=== PATIENT | female | born 1985 | race Caucasian/White ===

== ENCOUNTER → 2017-04-03 | Outpatient (CLI) | payer OTHER ==
--- NOTE | 2017-04-04 11:22 | RADIOLOGY REPORT (SQ) ---
EXAM DESCRIPTION: PET CT SKULL/THIGH COMPLETED DATE/TIME: 04/03/2017 10:20 pm REASON FOR STUDY: COLON CANCER Z85.528 PERSONAL HISTORY OF OTHER MALIGNANT NEOPLASM OF KIDN COMPARISON: 05/14/2016. RADIONUCLIDE AND DOSE: 12.0 mCi F18 FDG The route of agent administration: Intravenous FASTING BLOOD SUGAR: 85 mg/dl CONTRAST TYPE AND DOSE: No CT contrast given. TECHNIQUE: Blood glucose level was verified. Above dose of FDG was injected intravenously. 2-D seg mented attenuation correction images were obtained from the base of the skull to the midthighs. Nonc ontrast CT images were obtained for attenuation correction and fusion with emission images. CT image s were performed without oral or intravenous contrast and are not sensitive for parenchymal lesions. A series of overlapping emission PET images were obtained. Images reviewed and manipulated at [facility] work station by the radiologist. Images stored on PACS. LIMITATIONS: None. FINDINGS: HEAD AND NECK: No areas of abnormal metabolic activity in the soft tissues of the head and neck. CHEST: No areas of abnormal metabolic activity in the chest. ABDOMEN AND PELVIS: Stable surgical changes of partial colectomy and right kidney lower pole partial nephrectomy. No areas of abnormal metabolic activity in the abdomen or pelvis. Expected physiologic activity is present in the genitourinary system and bowel. PROXIMAL LOWER EXTREMITIES: No areas of abnormal metabolic activity in the soft tissues of the lower extremities. BONES: No abnormal metabolic activity in the visualized skeleton. ADDITIONAL CT FINDINGS: No additional significant findings on the noncontrast CT images. OTHER: No other significant findings. IMPRESSION: ESSENTIALLY UNREMARKABLE PET SCAN. STABLE SURGICAL CHANGES OF PREVIOUS PARTIAL COLECTOM Y AND RIGHT KIDNEY LOWER POLE PARTIAL NEPHRECTOMY. NO AREAS OF ABNORMAL METABOLIC ACTIVITY. NO EVID ENCE OF RESIDUAL OR RECURRENT DISEASE OR METASTASIS. TECHNICAL DOCUMENTATION: JOB ID: [id number] [employer]- All Rights Reserved
== END ==
LOC: RAD 20:08
PROVIDERS: ATTEND Internal Medicine Medical Oncology
DX: C18.9 Malignant neoplasm of colon, unspecified (principal); Z85.528 Personal history of other malignant neoplasm of kidney
CPT/HCPCS: 78815; A9552

== ENCOUNTER → 2017-04-19 | Outpatient (CLI) | payer OTHER ==
--- NOTE | 2017-04-19 17:57 | WOMENS IMAGING REPORT ---
EXAM DESCRIPTION: BILAT SCREENING MAMMO W/CAD COMPLETED DATE/TIME: 04/19/2017 8:55 am REASON FOR STUDY: ROUTINE SCREENING; Z12.31 Z12.31 ENCNTR SCREEN MAMMOGRAM FOR MALIGNANT NEOPLASM O F TARUN COMPARISON: None. TECHNIQUE: Standard craniocaudal and mediolateral oblique views of each breast recorded using digita l acquisition. LIMITATIONS: None. FINDINGS: No masses, calcifications or architectural distortion. No areas of suspicion. Read with the assistance of CAD. .[facility] - R2 Cenova Version 1.3 .[facility] - R2 Cenova Version 1.3 .[facility] - R2 Cenova Version 2.4 .[facility] - R2 Cenova Version 2.4 .[facility] - R2 [employer] Version 9.2 IMPRESSION: NORMAL MAMMOGRAM. BIRADS 1. BREAST DENSITY: b. There are scattered areas of fibroglandular density. BIRAD: 1 NEGATIVE RECOMMENDATION: ROUTINE SCREENING Please continue yearly screening in March 2018, consider screening tomosynthesis. COMMENT: The patient has been notified of the results by letter per [place] requirements. Additional no tification policies are in place for contacting patient with suspicious or incomplete findings. Quality ID #[id number]: The [employer] recommends an annual screening mammogram for women aged 40 years or over. This facility utilizes a reminder system to ensure that all patients receive reminder letters, and/or direct phone calls for appointments. This includes reminders for routine scr eening mammograms, diagnostic mammograms, or other Breast Imaging Interventions when appropriate. Th is patient will be placed in the appropriate reminder system. The [employer] (ACR) has developed recommendations for screening MRI of the breast s in certain patient populations, to be used in conjunction with mammography. Breast MRI surveillanc e may be appropriate for women with more than 20% lifetime risk of developing breast cancer as deter mined by genetic testing, significant family history of the disease, or history of mantle radiation f or Hodgkins Disease. ACR Practice Guidelines 2008. TECHNICAL DOCUMENTATION: FINDING NUMBER: (1) ASSESSMENT: (1) JOB ID: [id number] [employer]- All Rights Reserved
== END ==
LOC: WI 09:12
PROVIDERS: ATTEND Internal Medicine Medical Oncology
DX: Z12.31 Encounter for screening mammogram for malignant neoplasm of breast (principal)
CPT/HCPCS: 77067; G0202

== ENCOUNTER 2017-06-03 08:35 | Day surgery (SDC) | payer OTHER ==
--- NOTE | 2017-06-01 12:24 | HISTORY AND PHYSICAL E ---
History and Physical NAME: KEILA CROCKER : 1985 AGE: 31Y ADMITTED: 06/03/2017 ROOM: HISTORY OF PRESENT ILLNESS: The patient was seen regarding blood in the stool, rectal bleeding. She is for colon exam. Patient did have colonoscopy done 2015 showing sigmoid polyp. Patient for colonoscopy. Patient was seen 05/2016. She does have a history of kidney cancer, colon cancer, and underwent colonoscopy shows a sessile polyp, resected. The patient did have history of colon cancer. Patient did have followup colonoscopy, benign looking polyp in the rectum, 0.5 cm polyp resected. MEDICATIONS: Synthroid. PAST MEDICAL HISTORY: History of sigmoid resection. 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 Cardiac: Negative. Endocrine: Hypothyroid. SOCIAL HISTORY: She is . Does not smoke. Does not drink. FAMILY HISTORY: Father is alive. Mom had CVA, she was 63 years old. REVIEW OF SYSTEMS: GI: Rectal bleeding. Oncology/Hematology: Partial right kidney resection. Neurology: Negative. PHYSICAL EXAMINATION: VITALS: Blood pressure 130/80, pulse 80, respirations 18, temperature is 98. HEAD, EYES, EARS, NOSE, THROAT: Normal. NECK: Supple. CARDIOVASCULAR: Normal. LUNGS: Clear. ABDOMEN: Soft. NEUROLOGIC: Negative. CONCLUSION: Colon screening. Blood in the stool. PLAN: Colonoscopy. She did have benign polyp 06/16/16, hyperplastic polyp. DICTATING PHYSICIAN: COLBY TAPIA M.D. [id number] PHY#: [id number] ID: [id number] JOB#: [id number] ACCT: [id number] cc: >
[~2017-06-03 08:35] MED LIST: EPINEPHRINE INJ 1 MG/10 ML DISP.SYRIN ONE; FLUMAZENIL INJ 0.5 MG/5 ML VIAL ONE; GLUCAGON,HUMAN RECOMB 1 MG INJ ONE; GLYCOPYRROLATE INJ 0.4 MG/2 ML VIAL ONE; NALOXONE HCL INJ/PF 0.4 MG/1 ML SDV ONE; ONDANSETRON HCL INJ/PF 4 MG/2 ML SDV ONE
[2017-06-03] MEDS: MIDAZOLAM 2 MG/2 ML INJ ONE ×2 (09:06→09:10)
[2017-06-03] MEDS: FENTANYL CITRATE INJ/PF 100 MCG/2 ML AMPUL ONE ×3 (09:08→09:14)
[2017-06-03 10:28] VITALS: BP 102/63
--- NOTE | 2017-06-03 11:52 | DISCHARGE SUMMARY E ---
Discharge Summary NAME: KEILA CROCKER : 1985 AGE: 31Y ADMITTED: 06/03/2017 DISCHARGED: 06/03/2017 HISTORY: The patient is 31, presents with a history of polyps, history of kidney cancer. Underwent colonoscopy today, shows no evidence of polyps, mild external hemorrhoids, and question anal fissure. DISCHARGE PLAN: Xylocaine jelly 2% as needed, sitz baths. Consider followup colonoscopy 2 years. DICTATING PHYSICIAN: COLBY TAPIA M.D. [id number] PHY#: [id number] ID: [id number] JOB#: [id number] ACCT: [id number] cc:[facility] COLBY TAPIA M.D. >
--- NOTE | 2017-06-03 11:53 | OPERATIVE REPORT E ---
Operative Report NAME: KEILA CROCKER : 1985 AGE: 31Y DATE OF SURGERY: 06/03/2017 ROOM: PREOPERATIVE DIAGNOSIS: Rectal bleeding, history of polyps. POSTOPERATIVE DIAGNOSIS: External hemorrhoid, small question anal fissure. OPERATION: Colonoscopy. SURGEON: COLBY TAPIA M.D. ANESTHESIA: Versed 3, fentanyl 200. TISSUE REMOVED OR ALTERED: None. PROCEDURE: Rectal exam was painful, but I did not see any definite fissure. There are mild external hemorrhoids. Rectal matter was normal. Sigmoid, descending colon normal. Transverse colon normal. Ascending, cecum, ileocecal valve normal. Scope withdrawn from cecum, ascending, transverse, descending, sigmoid, all the way to the rectum. CONCLUSION: The rectal bleeding from hemorrhoids, question anal fissure. Rectal bleeding, external hemorrhoids, anal fissure. Patient tolerated the procedure, was discharged to home in stable condition. PLAN: Soft diet, sitz baths, and Xylocaine jelly. Consider followup colonoscopy after 2 years. She did have a polyp resected on previous colonoscopy December 2015. Today, there were no polyps. DICTATING PHYSICIAN: COLBY TAPIA M.D. [id number] PHY#: [id number] ID: [id number] JOB#: [id number] ACCT: [id number] cc:[facility] COLBY SALAZAR M.D. >
== END 2017-06-03 10:40 | disposition home or self-care (01) ==
LOC: END 08:35
PROVIDERS: ATTEND Specialist
PROC: 0DJD8ZZ Inspection of Lower Intestinal Tract, Via Natural or Artificial Opening Endoscopic (ICD-10-PCS; principal; 2017-06-03 09:00)
DX: K62.5 Hemorrhage of anus and rectum (principal); K64.4 Residual hemorrhoidal skin tags; E03.9 Hypothyroidism, unspecified; Z90.5 Acquired absence of kidney; Z90.49 Acquired absence of other specified parts of digestive tract; Z85.528 Personal history of other malignant neoplasm of kidney
CPT/HCPCS: 45378; J2250; J3010; J1610; J2405; J0171; J2310; J3490

== ENCOUNTER → 2018-04-30 | Outpatient (CLI) | payer OTHER ==
--- NOTE | 2018-05-02 09:10 | RADIOLOGY REPORT (SQ) ---
EXAM DESCRIPTION: PET CT SKULL/THIGH COMPLETED DATE/TIME: 04/30/2018 8:17 pm REASON FOR STUDY: HISTORY OF COLON CANCER Z85.528 PERSONAL HISTORY OF OTHER MALIGNANT NEOPLASM OF K IDN COMPARISON: PET-CT 04/03/2017 RADIONUCLIDE AND DOSE: 10.8 mCi F18 FDG The route of agent administration: Intravenous FASTING BLOOD SUGAR: 76 mg/dl CONTRAST TYPE AND DOSE: No CT contrast given. TECHNIQUE: Blood glucose level was verified. Above dose of FDG was injected intravenously. 2-D seg mented attenuation correction images were obtained from the base of the skull to the midthighs. Nonc ontrast CT images were obtained for attenuation correction and fusion with emission images. CT image s were performed without oral or intravenous contrast and are not sensitive for parenchymal lesions. A series of overlapping emission PET images were obtained. Images reviewed and manipulated at [facility] work station by the radiologist. Images stored on PACS. LIMITATIONS: None. FINDINGS: HEAD AND NECK: No areas of abnormal metabolic activity in the soft tissues of the head and neck. CHEST: No areas of abnormal metabolic activity in the chest. ABDOMEN AND PELVIS: No areas of abnormal metabolic activity in the abdomen or pelvis. Expected physi ologic activity is present in the genitourinary system and bowel. Along the right retroperitoneum, inferior to the right lower pole kidney palm 1.6 x 0.7 cm nodule is present on axial image 162 with SUV of 1.1, below blood pool. This may represent fat necrosis. This is new compared to previous studies. PROXIMAL LOWER EXTREMITIES: No areas of abnormal metabolic activity in the soft tissues of the lower extremities. BONES: No abnormal metabolic activity in the visualized skeleton. ADDITIONAL CT FINDINGS: Right adam nephrectomy. Anastomotic betty at the rectosigmoid post low ant erior resection. OTHER: Liver background activity 2.4 SUV. 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 Small right retroperitoneal nodule inferior to the right lower pole kidney, with metabolic activity b elow baseline, likely a small area of fat necrosis TECHNICAL DOCUMENTATION: JOB ID: [id number] [employer]- All Rights Reserved Reading location - IP/workstation name: [email or web address]
== END ==
LOC: RAD 14:35
PROVIDERS: ATTEND Internal Medicine Medical Oncology
DX: Z85.528 Personal history of other malignant neoplasm of kidney (principal)
CPT/HCPCS: 78815; A9552

== ENCOUNTER → 2018-08-13 | Outpatient (CLI) | payer OTHER ==
--- NOTE | 2018-08-14 09:38 | RADIOLOGY REPORT (SQ) ---
EXAM DESCRIPTION: PET CT SKULL/THIGH COMPLETED DATE/TIME: 08/13/2018 8:36 pm REASON FOR STUDY: COLON CANCER C64.9 MALIGNANT NEOPLASM OF UNSP KIDNEY, EXCEPT RENAL PELVIS Z85.528 PERSONAL HISTORY OF OTHER MALIGNANT NEOPLASM OF KIDN COMPARISON: 04/30/2018 RADIONUCLIDE AND DOSE: 10.15 mCi F18 FDG The route of agent administration: Intravenous FASTING BLOOD SUGAR: 75 mg/dl CONTRAST TYPE AND DOSE: No CT contrast given. TECHNIQUE: Blood glucose level was verified. Above dose of FDG was injected intravenously. 2-D seg mented attenuation correction images were obtained from the base of the skull to the midthighs. Nonc ontrast CT images were obtained for attenuation correction and fusion with emission images. CT image s were performed without oral or intravenous contrast and are not sensitive for parenchymal lesions. A series of overlapping emission PET images were obtained. Images reviewed and manipulated at [facility] work station by the radiologist. Images stored on PACS. LIMITATIONS: None. FINDINGS: HEAD AND NECK: No areas of abnormal metabolic activity in the soft tissues of the head and neck. CHEST: No areas of abnormal metabolic activity in the chest. ABDOMEN AND PELVIS: No areas of abnormal metabolic activity in the abdomen or pelvis. Expected physi ologic activity is present in the genitourinary system and bowel. PROXIMAL LOWER EXTREMITIES: No areas of abnormal metabolic activity in the soft tissues of the lower extremities. BONES: No abnormal metabolic activity in the visualized skeleton. ADDITIONAL CT FINDINGS: Partial right nephrectomy. Rectosigmoid anastomosis. OTHER: No other significant findings. IMPRESSION: No evidence of local recurrence or metastatic disease. TECHNICAL DOCUMENTATION: JOB ID: [id number] [employer]- All Rights Reserved Reading location - IP/workstation name: [email or web address]
== END ==
LOC: RAD 17:45
PROVIDERS: ATTEND Internal Medicine Medical Oncology
DX: Z08 Encounter for follow-up examination after completed treatment for malignant neoplasm (principal); Z85.528 Personal history of other malignant neoplasm of kidney
CPT/HCPCS: 78815; A9552

== ENCOUNTER 2019-01-10 08:08 | Day surgery (SDC) | payer OTHER ==
[2019-01-10 08:57] LABS: HEMATOCRIT 41.3 % (36.0-47.0); MEAN CORPUSCULAR HEMOGLOBIN 27.9 pg (27.0-33.4); MEAN CORPUSCULAR HGB CONC 33.8 g/dL (32.0-36.0); MEAN CORPUSCULAR VOLUME 82 fl (80-97); PLATELET COUNT 267 10^3/uL (150-450); RED BLOOD COUNT 5.02 10^6/uL (3.72-5.28); WHITE BLOOD COUNT 9.5 10^3/uL (4.0-10.5)
[2019-01-10] MEDS ORDERED: GENTAMICIN SULFATE INJ 80 MG/2 ML VIAL ONE (09:00)
[2019-01-10 09:16] LABS: APPEARANCE,URINE CLEAR; BILIRUBIN,URINE NEGATIVE (NEGATIVE); COLOR,URINE YELLOW; GLUCOSE, URINE NEGATIVE (NEGATIVE); KETONES,URINE NEGATIVE (NEGATIVE); LEUKOCYTE ESTERASE,URINE NEGATIVE (NEGATIVE); NITRITE,URINE NEGATIVE (NEGATIVE); PROTEIN,URINE NEGATIVE (NEGATIVE); UROBILINOGEN,URINE NEGATIVE mg/dL (<2.0)
[2019-01-10 09:18] LABS: ALANINE AMINOTRANSFERASE 26 U/L (9-52); ALBUMIN 4.5 g/dL (3.5-5.0); ALKALINE PHOSPHATASE 70 U/L (38-126); ANION GAP 11 (5-19); ASPARTATE AMINO TRANSFERASE 23 U/L (14-36); BILIRUBIN,DIRECT 0.2 mg/dL (0.0-0.4); BILIRUBIN,TOTAL 1.2 mg/dL (0.2-1.3); BLOOD UREA NITROGEN 12 mg/dL (7-20); CARBON DIOXIDE 25 mmol/L (22-30); CHLORIDE 103 mmol/L (98-107); GLUCOSE 100 mg/dL (75-110); POTASSIUM 4.2 mmol/L (3.6-5.0); SODIUM 138.8 mmol/L (137-145)
[2019-01-10] MEDS ORDERED: FENTANYL CITRATE INJ/PF 100 MCG/2 ML AMPUL ONE (10:45)
[2019-01-10] MEDS ORDERED: KETAMINE HCL INJ 500 MG/10 ML VIAL ONE (10:45)
[2019-01-10] MEDS ORDERED: MIDAZOLAM 2 MG/2 ML INJ ONE (10:45)
[2019-01-10] MEDS ORDERED: PROPOFOL INJ 200 MG/20 ML VIAL IV ONE (10:45)
[2019-01-10] MEDS ORDERED: LIDOCAINE 1% INJ-PF (10 MG/ML) 30 ML SDV ONE (10:46)
[2019-01-10] MEDS ORDERED: PROMETHAZINE HCL INJ 25 MG/1 ML VIAL IV PRN ×3 (11:57→12:25)
[2019-01-10] MEDS ORDERED: DIPHENHYDRAMINE HCL 50 MG/ML VIAL IV PRN (11:57)
[2019-01-10] MEDS ORDERED: HYDROMORPHONE HCL INJ/PF 2 MG/ML AMPULE IV PRN (11:57)
[2019-01-10] MEDS: HYDROMORPHONE HCL INJ/PF 2 MG/ML AMPULE ONE ×4 (11:57→12:27)
[2019-01-10] MEDS ORDERED: FENTANYL CITRATE INJ/PF 100 MCG/2 ML AMPUL IV PRN ×3 (11:57)
[2019-01-10] MEDS ORDERED: MEPERIDINE HCL/PF INJ 25 MG/1 ML DISP.SYRIN IV PRN (11:57)
[2019-01-10] MEDS ORDERED: ONDANSETRON HCL INJ/PF 4 MG/2 ML SDV ONE (12:09)
[2019-01-10] MEDS ORDERED: GLYCOPYRROLATE 1 MG/5 ML VIAL ONE (12:09)
[2019-01-10] MEDS ORDERED: OXYCODONE-ACETAMINOPHEN 5-325 MG TABLET PO PRN ×2 (12:23→13:14)
--- NOTE | 2019-01-10 12:55 | OPERATIVE REPORT E ---
Operative Report NAME: KEILA CROCKER : 1985 AGE: 33Y DATE OF SURGERY: 01/10/2019 ROOM: PREOPERATIVE DIAGNOSIS: 1. MENOMETRORRHAGIA. 2. DYSFUNCTIONAL UTERINE BLEEDING. POSTOPERATIVE DIAGNOSIS: 1. MENOMETRORRHAGIA. 2. DYSFUNCTIONAL UTERINE BLEEDING. OPERATION: Dilation and curettage hysteroscopy and NovaSure. SURGEON: BREEZY ENCINAS M.D. ANESTHESIA: LMAC PERTINENT HISTORY/OPERATIVE FINDINGS: This is a 33-year-old female who had been having trouble with irregular and heavy bleeding, ultimately decided to proceed with a NovaSure. She was aware of the risks and benefits. At the time of surgery, the vulva appeared normal, the vagina appeared to be normal. The cervix appeared to be normal. The uterus was slightly increased in size. Anterior adnexa palpated and negative. PROCEDURE: The patient was brought into the OR, placed on the table in a supine position, inducted under LMAC. She was repositioned in dorsal lithotomy position and prepped and draped in a sterile fashion. The bladder was drained approximately 50 to 60 mL of clear yellow urine. A pelvic under anesthesia was done which was essentially negative findings. A weighted speculum was inserted. The cervix was grasped on this anterior lip. It was sounded to 10 cm. It was then dilated to a #8 Hegar dilator. A laparoscope with saline running was then gently inserted through the cervical os into the uterus. We did evaluate the uterus. There appeared to be an endometrial polyp. This was removed. The contents of the endometrial cavity were then curetted. Having established the integrity of the cavity as stated, the procedure was then indicated. We went ahead and opened up the NovaSure. The cervix had been grasped on its anterior lip with a single tooth tenaculum and an Allis. The NovaSure was gently inserted through the cervix through the endocervical canal, into the uterine cavity, taken up to the fundus, and then gently opened up. The NovaSure was pulled back slightly and then going north, south, east, west, and rotating 45 degrees in both directions and pulling back in between, this procedure was carried out 3 times. It assessed the width of the cavity as 4.3 and the NovaSure was tested. The power came out to be 142 at this point in time. The plunger was advanced as the cavity was okay. I stated it had been tested. It was enacted. We had a burn time of 1 minute and 18 seconds. This terminated the active part of the NovaSure. The instrument was closed and removed. A scope with saline running hysteroscope was reinserted through the cervix. We inspected the cavity, there was a good burn. At this point of time, the excess saline was suctioned out. The tenaculum and Allis clamp were removed from the anterior lip of the cervix. The cervix was inspected. There was no evidence of active bleeding. The weighted speculum was removed. A pelvic under anesthesia was done. Everything felt normal. This terminated procedure. The patient was placed back in the supine position and anesthesia was stopped. Patient was transferred to recovery room in satisfactory condition. DICTATING PHYSICIAN: BREEZY ENCINAS M.D. [id number] PHY#: [id number] ID: [id number] JOB#: [id number] ACCT: [id number] cc:BREEZY ENCINAS M.D. >
[2019-01-10] MEDS ORDERED: ONDANSETRON 4 MG TAB.RAPDIS ONE (14:22)
[2019-01-10] MEDS ORDERED: ONDANSETRON 4 MG TAB.RAPDIS PO ONE (14:30)
[2019-01-10] MEDS ORDERED: PROMETHAZINE HCL INJ 25 MG/1 ML VIAL ONE (14:54)
[2019-01-10] MEDS ORDERED: OXYCODONE-ACETAMINOPHEN 5-325 MG TABLET ONE (15:02)
[2019-01-10 16:33] VITALS: BP 112/67
== END 2019-01-10 16:05 | disposition home or self-care (01) ==
LOC: OROUT 08:08
PROVIDERS: ATTEND Obstetrics & Gynecology
DX: N93.8 Other specified abnormal uterine and vaginal bleeding (principal); N92.1 Excessive and frequent menstruation with irregular cycle; D50.9 Iron deficiency anemia, unspecified; Z85.038 Personal history of other malignant neoplasm of large intestine; D64.9 Anemia, unspecified; N84.0 Polyp of corpus uteri; R01.1 Cardiac murmur, unspecified; E07.9 Disorder of thyroid, unspecified
CPT/HCPCS: 58563; 36415; 85027; 81025; 80053; 81001; 88305 ×2; 00952; J2250; S0119; J3010; J1580; J3490 ×2; J1170; J2550; J2405; J2704; 952